=== PATIENT | female | born 1945 | race Caucasian/White ===

== ENCOUNTER 2021-02-22 13:30 | Inpatient (IN) ==
[2021-02-22] MEDS ORDERED: PROCHLORPERAZINE 1 ML IV ONE (14:02)
[2021-02-22] MEDS ORDERED: ACETAMINOPHEN 1,000 MG/100 ML VIAL IV STA (14:02)
[2021-02-22 14:19] LABS: Basophils # (auto) 0.02 K/uL (0-0.2); Basophils % (auto) 0.3 %; Eosinophils # (auto) 0.22 K/uL (0-0.5); Eosinophils % (auto) 3.7 %; Hematocrit (blood only) 41.8 % (37-47); Hemoglobin 13.7 g/dL (12.0-16.0); Immature Granulocytes # (auto) 0.01 K/uL (0.00-0.02); Immature Granulocytes % (auto) 0.2 %; Lymphocytes % (auto) 18.3 %; Mean Corpuscular Hgb Conc 32.8 g/dL (32-36); Mean Corpuscular Volume 91.7 fL (80-100); Mean Platelet Volume 9.9 fL (7.4-10.4); Monocytes # (auto) 0.79 K/uL (0.11-0.59); Monocytes % (auto) 13.1 %; Neutrophils # (auto) 3.87 K/uL (1.4-6.5); Neutrophils % (auto) 64.4 %; Platelet Count 260 K/uL (130-400); RDW Coefficient of Variation 13.6 % (11.5-14.5); RDW Standard Deviation 45.7 fL (36.4-46.3); Red Blood Count 4.56 M/uL (4.2-5.4); White Blood Count 6.01 K/uL (4.8-10.8)
[2021-02-22 14:30] LABS: Prothrombin Time 10.3 Seconds (9.0-12.0)
--- NOTE | 2021-02-22 14:40 | XRay Report ---
XR chest 1V portable CLINICAL HISTORY: Atypical chest pain TECHNIQUE: Single frontal radiograph of the chest was obtained. Comparison: None available at the time of this dictation. FINDINGS: No lines and tubes are seen. The cardiomediastinal silhouette is normal. The lungs are clear. No evid ence of pleural effusion or pneumothorax. A lucency is seen in the acromion. IMPRESSION: No acute chest disease. ACT 112: Negative or not required by law. Electronically signed by: Paulo De Santiago M.D. 02/22/2021 2:38 PM
[2021-02-22 15:04] LABS: Influenza A virus by PCR Negative (Neg); Influenza B virus by PCR Negative (Neg); RSV by PCR Negative (Neg); SARS CoV2 RNA(COVID-19) InHosp NEGATIVE (Negative)
[2021-02-22 15:14] LABS: Alanine Aminotransferase 28 (12-78); Albumin Level 3.7 gm/dl (3.4-5.0); Alkaline Phosphatase 97 U/L (45-117); Aspartate Aminotransferase 17 U/L (15-37); BUN Creatinine Ratio 18.6 (10-20); Bilirubin,Total 0.7 mg/dl (0.2-1); Blood Urea Nitrogen 14 mg/dl (7-18); C Reactive Protein < 0.29 mg/dl (0-0.29); Carbon Dioxide 28 mmol/L (21-32); Chloride 106 mmol/L (98-107); Creatinine Clr Calc Pharmacy 62.1 ml/min; Est GFR (African American) 88.9 ml/min; Est GFR (Non-African American) 76.7 ml/min; Globulin 3.8 gm/dl (2.5-4.0); Glucose 99 mg/dl (70-99); Lipase 103 U/L (73-393); Magnesium 2.2 mg/dl (1.8-2.4); Phosphorus 3.6 mg/dl (2.5-4.9); Potassium 3.2 mmol/L (3.5-5.1); Sodium 140 mmol/L (136-145); Total Protein 7.5 gm/dl (6.4-8.2); Troponin I < 0.015 ng/ml (0-0.045)
[2021-02-22] MEDS ORDERED: OPTIRAY 320 125ml IV ONE (15:29)
--- NOTE | 2021-02-22 15:51 | CT Scan Report ---
CT angio head w con, CT head/brain wo con, CT angio neck with con CLINICAL HISTORY: headache, nausea, blurred vision TECHNIQUE: Contiguous axial CT images of the head were acquired from the base of the skull to the kristie paulino without intravenous contrast administration. CT angiography of the head and neck was performed f ollowing intravenous administration of iodinated contrast. Automated dose lowering techniques and/or adjustment according to patient size were utilized for this examination. Comparison: None available at the time of this dictation. FINDINGS: CT head: There is hypodensity in the region of the left globus pallidus and putamen. Hypodensity is a lso noted in the left posterior supraventricular white matter. No andrew hemorrhage is seen. CTA Neck: A 3 vessel aortic arch is shown. There is no significant atherosclerotic plaque in the aor tic arch or the origins of the innominate, left common carotid, and left subclavian arteries. The co mmon carotid, external carotid, cervical segments of the internal carotid arteries, and the cervical segments of the vertebral arteries are patent. There is no hemodynamically significant diameter sten osis or dissection present. The right vertebral artery is dominant. The left vertebral artery is high ly diminutive and patent flow is not seen at multiple levels, particularly near the origin. Biapical scarring is noted. Incidental note is made of venous injection of air in the left subclavian artery. Subcentimeter thyroid nodules are seen bilaterally which do not require follow-up by ACR criteria. CTA Head: The anterior and posterior cerebral circulations are patent. No hemodynamically significan t stenosis, aneurysm, dissection, or arteriovenous malformation is shown. IMPRESSION: 1. Asymmetric hypodensity in the left anterior globus pallidus and putamen as well as the posterior supraventricular white matter which may possibly reflect acute infarct. If further evaluation is alex red, MRI is a more sensitive modality for acute infarct. 2. No occlusion, hemodynamically significant stenosis, aneurysm, dissection, or arteriovenous malfor mation in the major intracranial arteries. 3. Highly diminutive appearance of the left vertebral artery with no visualized flow proximally. The posterior circulation is supplied primarily by the right femoral artery. Assessment of stenosis of the internal carotid arteries is based on NASCET criteria. ACT 112: Negative or not required by law. Electronically signed by: Paulo De Santiago M.D. 02/22/2021 3:50 PM
[2021-02-22] MEDS ORDERED: SODIUM CHLORIDE 0.9% 1000ML 1,000 ML IV ONE ×2 (16:30→16:31)
--- NOTE | 2021-02-22 16:30 | Emergency Department Note ---
Impression & Plan CVA (cerebral vascular accident), Hypertensive urgency, Headache, Vision changes ED Provider Note NAME: BREONNA MAY AGE: 76 SEX: F ARRIVES VIA: Walk-In INFORMANT: Patient, daughter ED PROVIDER(S): Shaquille Storey MD CHIEF COMPLAINT: headache, blurred vision, weakness. PLAN: Disposition: Admit. MEDICAL DECISION MAKING: The patient is a pleasant 76-year-old woman with a past medical history of hyperlipidemia who presents to the emergency department accompanied by her daughter for symptoms of headache over her right eye that is been ongoing for the past week but with the development of generalized weakness and blurred vision evolving over the past 48 hours with associated nausea. She denies cough, congestion, chest pain, shortness of breath, diarrhea or urinary symptoms. She is not vaccinated for COVID-19. Denies any known COVID-19 e xposures. Patient was seen by her primary care doctor today and referred to emergency department for evaluation. On arrival the patient is fatigued appearing but no acute distress, afebrile with blood pressure elevated in the 200s/100s and vital signs otherwise stable. She appears clinically dry. She has no overt focal neurologic deficits. There is no obvious disconjugate gaze. No temporal tenderness. 5/5 strength and SILT x 4 extremities. Cerebellar function intact including rvmwpm-no-coob, alternating palms, [id number]. EKG without overt acute ischemia. CXR negative for acute cardiopulmonary process. WBC, H/H and platelets within normal limits. Chemistry without metabolic acidosis. Potassium 3.2 and electrolytes otherwise unremarkable. LFTs unremarkable. Troponin negative/undetectable. ESR and CRP are not significantly elevated. Lipase not elevated. COVID-19 PCR was negative. Influenza PCR also negative. CT of the head and CT of the head and neck were performed and demonstrates asymmetric hypodensity in left anterior globus pallidus and putamen as well as posterior supraventricular white matter which is suspicious for acute infarct. Otherwise no severe narrowing or occlusion of large vessels. Upon re-evaluation the patient did feel improved following IVF hydration, apap, and Compazine. However, BP continued to be elevated 200s/100s with HR in 50s.Patient and daughter agree with plan for admission. Case d/w Bryan Saavedra PAC, [facility] who will evaluate the patient for admission. IV enalaprilat ordered for BP control upon per admitting team. Triage Nursing notes reviewed and agree them. Prior medical records reviewed Vital Signs: reviewed and remarkable for hypertension. Differential diagnosis: Infection, dehydration, metabolic abnormality, hypo/hyperglycemia, electrolyte disturbance, anemia, hypoxia, cardiac sources, intracerebral event, toxicologic, neurologic, as well as other pathologies. ER treatment provided: See below. Diagnostics interpreted by me: ECG: Sinus bradycardia, 56 bpm, no ectopy, no overt ST elevation or depression, QTC 414, QRS 70. Cardiac Monitoring: An order for continuous cardiac monitoring was placed and demonstrated Sinus bradycardia, 56 bpm, no ectopy. Laboratory studies: See below Imaging studies: See below Consultation(s): Bryan Saavedra, with Dr. Laura Adams hospitalist who will evaluate the patient for admission. HPI: The patient is a pleasant 76-year-old woman with a past medical history of hyperlipidemia who presents to the emergency department accompanied by her daughter for symptoms of headache over her right eye that is been ongoing for the past week but with the development of generalized weakness and blurred vision evolving over the past 48 hours with associated nausea. She denies cough, congestion, chest pain, shortness of breath, diarrhea or urinary symptoms. She is not vaccinated for COVID-19. Denies any known COVID-19 exposures. Patient was seen by her primary care doctor today and referred to emergency department for evaluation. ROS: See above HPI for pertinent positives & negatives. A total of 10 systems reviewed and were otherwise negative. PAST MEDICAL HISTORY:See Below PAST SURGICAL HISTORY:See Below FAMILY HISTORY:See Below SOCIAL HISTORY:See Below HOME MEDICATIONS:See Below ALLERGIES:See Below VITALS:See Below PHYSICAL EXAMINATION: GENERAL: Awake, alert, fatigued-appearing, in no distress HENT: Normocephalic, atraumatic. Oropharynx with dry mucous membranes and otherwise unremarkable. EYES: Normal conjunctiva. Sclera non-icteric. EOMI. No nystamgus. PEARRL with no overt disconjugate gaze. No temporal tenderness. NECK: Supple. No nuchal rigidity. FROM. No JVD. RESPIRATORY: Clear to auscultation. CARDIAC: Regular rate, normal rhythm. Extremities warm and well perfused. Pulses equal. ABDOMEN: Soft, non-distended. No tenderness to palpation. No rebound or guarding. No masses. RECTAL: Deferred. MUSCULOSKELETAL: Chest examination reveals no tenderness. The back is symmetr ical on inspection without obvious abnormality. There is no CVA tenderness to palpation. No joint edema. LOWER EXTREMITIES: Calves are equal size bilaterally and non-tender. No edema. No discoloration. NEURO: No objective focal sensory or motor deficits noted. 5/5 strength and SILT x 4 extremities. Cerebellar function intact including [id number] and alternating palms.. SKIN: No rash or jaundice noted. Shaquille Storey MD Past Med/Surg History Medical History GERD (gastroesophageal reflux disease) HLD (hyperlipidemia) Family History Other Family history non-contributory Social History Smoking Status: Never smoker Hx Alcohol Use: No Hx Substance Use: No Preferred Language: Belarusian Communication Ability: Effective White Washer Required: No Beliefs That Will Affect Care: None Current Living Situation: Family Current Living Situation Comment: Lives with daughter and granddaughter Other Information That Helps Us Care for You: No Feels Safe at Home: Yes Safety Concerns: Feels Safe At This Time Assistive Devices: Walker Allergies Allergies Allergy/AdvReac Type Severity Reaction Status Date / Time No Known Allergies Allergy Unknown Unverified 02/22/21 14:20 Home Meds Home Medications Medication Instructions Recorded Confirmed amoxicillin 875 mg tablet 875 mg PO DAILY 02/22/21 02/22/21 aspirin 81 mg tablet,delayed 81 mg PO DAILY 02/22/21 02/22/21 release (Aspirin Low Dose) atorvastatin 20 mg tablet 20 mg PO HS 02/22/21 02/22/21 calcium 600 mg capsule 600 mg PO DAILY 02/22/21 02/22/21 famotidine 20 mg tablet 20 mg PO DAILY 02/22/21 02/22/21 fluoxetine 20 mg capsule 20 mg PO DAILY 02/22/21 02/22/21 multivitamin 1 tab PO DAILY 02/22/21 02/22/21 omega 3-pbh-vyt-fish oil 60 mg-90 1 cap PO DAILY 02/22/21 02/22/21 mg-500 mg capsule (Fish Oil) vit C-vit D-tpwiwn-mfpxxdkn-omega 1 cap PO DAILY 02/22/21 02/22/21 3 100 mg-15 unit-2 mg-100 mg capsule Results & Data (ED) Vital Signs Vital Signs - 24 hr 02/22/21 13:36 02/22/21 14:19 02/22/21 14:30 Temperature 36.6 C Temperature Source Temporal Artery Scan Pulse Rate 62 55 L 54 L Pulse Rate [Apical] Pulse Rate from SpO2 Sensor 55 L 54 L Pulse Rhythm [Apical] Pulse Strength [Apical] Respiratory Rate 18 22 22 Respiratory Effort / Characteristics Non-Labored Respiratory Depth Normal Blood Pressure 219/89 H Blood Pressure [Left Arm] Blood Pressure Mean 132 Blood Pressure Mean [Left Arm] Blood Pressure Position [Left Arm] Pulse Oximetry 97 96 93 Oxygen Delivery Method Room Air Sepsis Recent Fever Within 48 Hours No Sepsis New/Unexplained Change in Mental Status No Sepsis Action Taken by Nursing No Action Required 02/22/21 14:35 02/22/21 15:00 02/22/21 15:46 Temperature Temperature Source Pulse Rate 60 55 L Pulse Rate [Apical] Pulse Rate from SpO2 Sensor 58 L 55 L Pulse Rhythm [Apical] Pulse Strength [Apical] Respiratory Rate 15 17 Respiratory Effort / Characteristics Respiratory Depth Blood Pressure Blood Pressure [Left Arm] Blood Pressure Mean Blood Pressure Mean [Left Arm] Blood Pressure Position [Left Arm] Pulse Oximetry 98 95 96 Oxygen Delivery Method Room Air Sepsis Recent Fever Within 48 Hours Sepsis New/Unexplained Change in Mental Status Sepsis Action Taken by Nursing 02/22/21 16:00 02/22/21 16:10 02/22/21 16:30 Temperature Temperature Source Pulse Rate 54 L 60 Pulse Rate [Apical] 54 L Pulse Rate from SpO2 Sensor 54 L 58 L Pulse Rhythm [Apical] Regular Pulse Strength [Apical] Normal Respiratory Rate 19 16 16 Respiratory Effort / Characteristics Non-Labored Respiratory Depth Normal Blood Pressure 194/94 H Blood Pressure [Left Arm] 212/88 H Blood Pressure Mean 127 Blood Pressure Mean [Left Arm] 129 Blood Pressure Position [Left Arm] Lying Pulse Oximetry 94 94 96 Oxygen Delivery Method Room Air Sepsis Recent Fever Within 48 Hours Sepsis New/Unexplained Change in Mental Status Sepsis Action Taken by Nursing 02/22/21 17:01 Temperature Temperature Source Pulse Rate Pulse Rate [Apical] Pulse Rate from SpO2 Sensor 71 Pulse Rhythm [Apical] Pulse Strength [Apical] Respiratory Rate Respiratory Effort / Characteristics Respiratory Depth Blood Pressure Blood Pressure [Left Arm] Blood Pressure Mean Blood Pressure Mean [Left Arm] Blood Pressure Position [Left Arm] Pulse Oximetry 98 Oxygen Delivery Method Sepsis Recent Fever Within 48 Hours Sepsis New/Unexplained Change in Mental Status Sepsis Action Taken by Nursing Laboratory Data Attestation: I reviewed the patient's lab results. Result diagrams: 02/22/21 13:45 02/22/21 13:45 Lab Results 02/22/21 02/22/21 02/22/21 Range/Units 13:45 13:45 13:45 WBC 6.01 (4.8-10.8) K/uL RBC 4.56 (4.2-5.4) M/uL Hgb 13.7 (12.0-16.0) g/dL Hct 41.8 (37-47) % MCV 91.7 (80-100) fL MCH 30.0 (25-34) pg MCHC 32.8 (32-36) g/dL RDW Std Deviation 45.7 (36.4-46.3) fL RDW Coeff of Jacey 13.6 (11.5-14.5) % Plt Count 260 (130-400) K/uL MPV 9.9 (7.4-10.4) fL Immature Gran % (Auto) 0.2 % Neut % (Auto) 64.4 % Lymph % (Auto) 18.3 % Meeker % (Auto) 13.1 % Eos % (Auto) 3.7 % Baso % (Auto) 0.3 % Neut # (Auto) 3.87 (1.4-6.5) K/uL Lymph # (Auto) 1.10 L (1.2-3.4) K/uL Meeker # (Auto) 0.79 H (0.11-0.59) K/uL Eos # (Auto) 0.22 (0-0.5) K/uL Baso # (Auto) 0.02 (0-0.2) K/uL Immature Gran # (Auto) 0.01 (0.00-0.02) K/uL ESR (0-30) mm/hr PT 10.3 (9.0-12.0) Seconds INR 1.0 (0.9-1.1) Sodium 140 (136-145) mmol/L Potassium 3.2 L (3.5-5.1) mmol/L Chloride 106 (98-107) mmol/L Carbon Dioxide 28 (21-32) mmol/L Anion Gap 6.0 (3-11) BUN 14 (7-18) mg/dl Creatinine 0.76 (0.6-1.2) mg/dl Est Cr Clr Drug Dosing 62.1 ml/min Est GFR ( Amer) 88.9 ml/min Est GFR (Non-Af Amer) 76.7 ml/min BUN/Creatinine Ratio 18.6 (10-20) Glucose 99 (70-99) mg/dl Calcium 9.0 (8.5-10.1) mg/dl Phosphorus 3.6 (2.5-4.9) mg/dl Magnesium 2.2 (1.8-2.4) mg/dl Total Bilirubin 0.7 (0.2-1) mg/dl AST 17 (15-37) U/L ALT 28 (12-78) Alkaline Phosphatase 97 (45-117) U/L Troponin I < 0.015 (0-0.045) ng/ml C-Reactive Protein < 0.29 (0-0.29) mg/dl Total Protein 7.5 (6.4-8.2) gm/dl Albumin 3.7 (3.4-5.0) gm/dl Globulin 3.8 (2.5-4.0) gm/dl Albumin/Globulin Ratio 1.0 (0.9-2) Lipase 103 (73-393) U/L SARS-CoV-2 (PCR) (Negative) Influenza Type A (PCR) (Neg) Influenza Type B (PCR) (Neg) RSV (RT-PCR) (Neg) 02/22/21 02/22/21 Range/Units 13:45 13:50 WBC (4.8-10.8) K/uL RBC (4.2-5.4) M/uL Hgb (12.0-16.0) g/dL Hct (37-47) % MCV (80-100) fL MCH (25-34) pg MCHC (32-36) g/dL RDW Std Deviation (36.4-46.3) fL RDW Coeff of Jacey (11.5-14.5) % Plt Count (130-400) K/uL MPV (7.4-10.4) fL Immature Gran % (Auto) % Neut % (Auto) % Lymph % (Auto) % Meeker % (Auto) % Eos % (Auto) % Baso % (Auto) % Neut # (Auto) (1.4-6.5) K/uL Lymph # (Auto) (1.2-3.4) K/uL Meeker # (Auto) (0.11-0.59) K/uL Eos # (Auto) (0-0.5) K/uL Baso # (Auto) (0-0.2) K/uL Immature Gran # (Auto) (0.00-0.02) K/uL ESR 27 (0-30) mm/hr PT (9.0-12.0) Seconds INR (0.9-1.1) Sodium (136-145) mmol/L Potassium (3.5-5.1) mmol/L Chloride (98-107) mmol/L Carbon Dioxide (21-32) mmol/L Anion Gap (3-11) BUN (7-18) mg/dl Creatinine (0.6-1.2) mg/dl Est Cr Clr Drug Dosing ml/min Est GFR ( Amer) ml/min Est GFR (Non-Af Amer) ml/min BUN/Creatinine Ratio (10-20) Glucose (70-99) mg/dl Calcium (8.5-10.1) mg/dl Phosphorus (2.5-4.9) mg/dl Magnesium (1.8-2.4) mg/dl Total Bilirubin (0.2-1) mg/dl AST (15-37) U/L ALT (12-78) Alkaline Phosphatase (45-117) U/L Troponin I (0-0.045) ng/ml C-Reactive Protein (0-0.29) mg/dl Total Protein (6.4-8.2) gm/dl Albumin (3.4-5.0) gm/dl Globulin (2.5-4.0) gm/dl Albumin/Globulin Ratio (0.9-2) Lipase (73-393) U/L SARS-CoV-2 (PCR) NEGATIVE (Negative) Influenza Type A (PCR) Negative (Neg) Influenza Type B (PCR) Negative (Neg) RSV (RT-PCR) Negative (Neg) Administered Medications Atorvastatin Calcium (Atorvastatin 40 Mg Tab) 40 mg PO HS ELISA Stop: 03/24/21 20:59 Last Admin: 02/22/21 20:51 Dose: 40 mg Documented by: [id number] Sodium Chloride (Sodium Chloride 0.9% 10ml Flush) 30 ml IV Q24H ELISA Stop: 02/26/21 21:01 Last Admin: 02/22/21 17:50 Dose: Not Given Documented by: [id number] Discontinued Medications Clopidogrel Bisulfate (Clopidogrel Bisulfate 75 Mg Tab) 75 mg PO NOW ONE Stop: 02/22/21 17:07 Last Admin: 02/22/21 17:34 Dose: 75 mg Documented by: [id number] Gadobutrol (Gadobutrol 65ml Vial) 7.5 ml IV ONCE ONE Stop: 02/22/21 22:23 Last Admin: 02/22/21 22:25 Dose: 7.5 ml Documented by: [id number] Acetaminophen (Ofirmev) 1,000 mg in 100 mls @ 400 mls/hr IV NOW STA Stop: 02/22/21 14:16 Last Infusion: 02/22/21 14:59 Dose: 0 mls/hr Documented by: [id number] Admin: 02/22/21 14:22 Dose: 400 mls/hr Documented by: [id number] Prochlorperazine (Compazine) 1 mls @ 1 mls/min IV ONE ONE Stop: 02/22/21 14:03 Last Admin: 02/22/21 14:22 Dose: 1 mls/min Documented by: [id number] Sodium Chloride (Nss 1000ml) 1,000 mls @ 999 mls/hr IV .Q1H1M ONE Stop: 02/22/21 17:30 Last Infusion: 02/22/21 17:50 Dose: 0 mls/hr Documented by: [id number] Admin: 02/22/21 16:40 Dose: 999 mls/hr Documented by: [id number] Sodium Chloride (Nss 1000ml) 1,000 mls @ 999 mls/hr IV .Q1H1M ONE Stop: 02/22/21 17:31 Last Infusion: 02/22/21 19:50 Dose: 0 mls/hr Documented by: [id number] Admin: 02/22/21 16:40 Dose: 999 mls/hr Documented by: [id number] Remdesivir 200 mg/ Sodium (Chloride) 250 mls @ 125 mls/hr IV ONE STA; Protocol Stop: 02/22/21 19:40 Last Admin: 02/22/21 17:49 Dose: Not Given Documented by: [id number] Enalaprilat 0.625 mg/ Syringe 10 mls @ 2 mls/min IV NOW STA Stop: 02/22/21 17:51 Last Admin: 02/22/21 18:03 Dose: 2 mls/min Documented by: [id number] Ioversol (Optiray 320 125ml) 118 ml IV ONCE ONE Stop: 02/22/21 15:30 Last Admin: 02/22/21 15:34 Dose: 118 ml Documented by: [id number] Labetalol HCl (Labetalol Hcl Iv 5 Mg/Ml 20ml) 20 mg IV NOW STA Stop: 02/22/21 17:59 Last Admin: 02/22/21 18:03 Dose: 20 mg Documented by: [id number] Cosigned by: [id number] Imaging Data Radiologist's Impression: Chest X-Ray 02/22/21 13:57 XR chest 1V portable CLINICAL HISTORY: Atypical chest pain TECHNIQUE: Single frontal radiograph of the chest was obtained. Comparison: None available at the time of this dictation. FINDINGS: No lines and tubes are seen. The cardiomediastinal silhouette is normal. The lungs are clear. No evidence of pleural effusion or pneumothorax. A lucency is seen in the acromion. IMPRESSION: No acute chest disease. ACT 112: Negative or not required by law. Electronically signed by: Paulo De Santiago M.D. 02/22/2021 2:[address] 02/22/21 13:58 CT angio head w con, CT head/brain wo con, CT angio neck with con CLINICAL HISTORY: headache, nausea, blurred vision TECHNIQUE: Contiguous axial CT images of the head were acquired from the base of the skull to the vertex without intravenous contrast administration. CT angiography of the head and neck was performed following intravenous admi nistration of iodinated contrast. Automated dose lowering techniques and/or adjustment according to patient size were utilized for this examination. Comparison: None available at the time of this dictation. FINDINGS: CT head: There is hypodensity in the region of the left globus pallidus and putamen. Hypodensity is also noted in the left posterior supraventricular white matter. No andrew hemorrhage is seen. CTA Neck: A 3 vessel aortic arch is shown. There is no significant atherosclerotic plaque in the aortic arch or the origins of the innominate, left common carotid, and left subclavian arteries. The common carotid, external carotid, cervical segments of the internal carotid arteries, and the cervical segments of the vertebral arteries are patent. There is no hemodynamically significant diameter stenosis or dissection present. The right vertebral artery is dominant. The left vertebral artery is highly diminutive and patent flow is not seen at multiple levels, particularly near the origin. Biapical scarring is noted. Incidental note is made of venous injection of air in the left subclavian artery. Subcentimeter thyroid nodules are seen bilaterally which do not require follow-up by ACR criteria. CTA Head: The anterior and posterior cerebral circulations are patent. No hemodynamically significant stenosis, aneurysm, dissection, or arteriovenous m alformation is shown. IMPRESSION: 1. Asymmetric hypodensity in the left anterior globus pallidus and putamen as well as the posterior supraventricular white matter which may possibly reflect acute infarct. If further evaluation is desired, MRI is a more sensitive modality for acute infarct. 2. No occlusion, hemodynamically significant stenosis, aneurysm, dissection, or arteriovenous malformation in the major intracranial arteries. 3. Highly diminutive appearance of the left vertebral artery with no visualized flow proximally. The posterior circulation is supplied primarily by the right femoral artery. Assessment of stenosis of the internal carotid arteries is based on NASCET criteria. ACT 112: Negative or not required by law. Electronically signed by: Paulo De Santiago M.D. 02/22/2021 3:50 PM Head CTA 02/22/21 13:58 CT angio head w con, CT head/brain wo con, CT angio neck with con CLINICAL HISTORY: headache, nausea, blurred vision TECHNIQUE: Contiguous axial CT images of the head were acquired from the base of the skull to the vertex without intravenous contrast administration. CT angiography of the head and neck was performed following intravenous adminis tration of iodinated contrast. Automated dose lowering techniques and/or adjustment according to patient size were utilized for this examination. Comparison: None available at the time of this dictation. FINDINGS: CT head: There is hypodensity in the region of the left globus pallidus and putamen. Hypodensity is also noted in the left posterior supraventricular white matter. No andrew hemorrhage is seen. CTA Neck: A 3 vessel aortic arch is shown. There is no significant atherosclerotic plaque in the aortic arch or the origins of the innominate, left common carotid, and left subclavian arteries. The common carotid, external carotid, cervical segments of the internal carotid arteries, and the cervical segments of the vertebral arteries are patent. There is no hemodynamically significant diameter stenosis or dissection present. The right vertebral artery is dominant. The left vertebral artery is highly diminutive and patent flow is not seen at multiple levels, particularly near the origin. Biapical scarring is noted. Incidental note is made of venous injection of air in the left subclavian artery. Subcentimeter thyroid nodules are seen bilaterally which do not require follow-up by ACR criteria. CTA Head: The anterior and posterior cerebral circulations are patent. No hemodynamically significant stenosis, aneurysm, dissection, or arteriovenous malformation is shown. IMPRESSION: 1. Asymmetric hypodensity in the left anterior globus pallidus and putamen as well as the posterior supraventricular white matter which may possibly reflect acute infarct. If further evaluation is desired, MRI is a more sensitive modality for acute infarct. 2. No occlusion, hemodynamically significant stenosis, aneurysm, dissection, or arteriovenous malformation in the major intracranial arteries. 3. Highly diminutive appearance of the left vertebral artery with no visualized flow proximally. The posterior circulation is supplied primarily by the right femoral artery. Assessment of stenosis of the internal carotid arteries is based on NASCET criteria. ACT 112: Negative or not required by law. Electronically signed by: Paulo De Santiago M.D. 02/22/2021 3:50 PM Neck CTA 02/22/21 13:58 CT angio head w con, CT head/brain wo con, CT angio neck with con CLINICAL HISTORY: headache, nausea, blurred vision TECHNIQUE: Contiguous axial CT images of the head were acquired from the base of the skull to the vertex without intravenous contrast administration. CT angiography of the head and neck was performed following intravenous administra tion of iodinated contrast. Automated dose lowering techniques and/or adjustment according to patient size were utilized for this examination. Comparison: None available at the time of this dictation. FINDINGS: CT head: There is hypodensity in the region of the left globus pallidus and putamen. Hypodensity is also noted in the left posterior supraventricular white matter. No andrew hemorrhage is seen. CTA Neck: A 3 vessel aortic arch is shown. There is no significant atherosclerotic plaque in the aortic arch or the origins of the innominate, left common carotid, and left subclavian arteries. The common carotid, external carotid, cervical segments of the internal carotid arteries, and the cervical segments of the vertebral arteries are patent. There is no hemodynamically significant diameter stenosis or dissection present. The right vertebral artery is dominant. The left vertebral artery is highly diminutive and patent flow is not seen at multiple levels, particularly near the origin. Biapical scarring is noted. Incidental note is made of venous injection of air in the left subclavian artery. Subcentimeter thyroid nodules are seen bilaterally which do not require follow-up by ACR criteria. CTA Head: The anterior and posterior cerebral circulations are patent. No hemodynamically significant stenosis, aneurysm, dissection, or arteriovenous malformation is shown. IMPRESSION: 1. Asymmetric hypodensity in the left anterior globus pallidus and putamen as well as the posterior supraventricular white matter which may possibly reflect acute infarct. If further evaluation is desired, MRI is a more sensitive mo dality for acute infarct. 2. No occlusion, hemodynamically significant stenosis, aneurysm, dissection, or arteriovenous malformation in the major intracranial arteries. 3. Highly diminutive appearance of the left vertebral artery with no visualized flow proximally. The posterior circulation is supplied primarily by the right femoral artery. Assessment of stenosis of the internal carotid arteries is based on NASCET criteria. ACT 112: Negative or not required by law. Electronically signed by: Paulo De Santiago M.D. 02/22/2021 3:50 PM Discharge Plan Visit Data Chief Complaint: TIA Symptoms Stated Complaint: WEAKNESS,DOUBLE VISION, DR REF ED Provider: Shaquille Storey Discharge Problem: CVA (cerebral vascular accident), Hypertensive urgency, Headache, Vision changes Patient Disposition: Admitted As Inpatient Discharge Instructions Interventions: ED Discharge Assessment Last Done: 02/22/21 18:23 Discharge Problem: CVA (cerebral vascular accident) Qualifiers: CVA mechanism: unspecified Qualified Code(s): I63.9 - Cerebral infarction, unspecified Headache Qualifiers: Headache type: unspecified Headache chronicity pattern: acute headache Intractability: intractable Qualified Code(s): R51.9 - Headache, unspecified
--- NOTE | 2021-02-22 17:00 | History & Physical Report ---
Date of Service February 22, 2021 Assessment & Plan (1) CVA (cerebral vascular accident): Plan: -Admit to PCU -Appears her symptoms started approximately 1 week ago, worsened specifically on Friday night, no history of CVA -Blood pressure is elevated at 240/100, and heart rate in 60s, will administer IV labetalol now x1, allow for permissive hypertension with goal of SBP of 160- 180 -Neuro consulted, stroke order set completed -CT of the head showing possible infarct -MRI of the brain ordered -PT/OT consults for gait imbalance/unsteadiness -Patient is able to fully participate in strength testing and cerebellar testing without difficulty -Continue baby aspirin daily, add Plavix with first dose tonight -Increase atorvastatin from 20 mg daily to 40 mg (2) Hypertensive urgency: Plan: -BP as above -Control with IV labetalol for now, consider IV Vasotec if heart rate is low and blood pressure remains high -No history of being on blood pressure medication for hypertension (3) HLD (hyperlipidemia): Plan: -Lipid panel reviewed as an outpatient, total cholesterol was around 170 -Recheck lipid panel with am labs -Increase statin therapy as above (4) MDD (major depressive disorder): Plan: -Continue Prozac daily DVT prophylaxis: - joshua scds CODE: Full code Dispo: From home, likely to remain in the hospital x 1-2 days History of Present Illness Chief Complaint: Blurred vision, generalized weakness, R sided headache Primary Care Provider: Stephanie Kulkarni DO This is a 76 yo F with PMHx of HLD, hx breast cancer, MDD, who presents from PCP office today with complaint of new onset of intermittent blurred vision, Right sided frontal headache, and generalized weakness and unsteady gait which started approximately 1 week ago. Patient presented an outpatient weekend clinic where she was told that she possibly had an ear infection, however denied any history of ear pain, and was started on amoxicillin twice daily. After 2 to 3 days of antibiotic and worsening symptoms on Friday ( which included worse headache, increase blurred vision in the R eye, and increased gait unsteadiness) she scheduled see her PCP, which occurred this morning. Her daughter reports that she is not herself, has not been up and doing things like she typically does; i.e. walks 1.5 mi at least twice per week, however was not able to do so, did not go to worship, did not go out to lunch with her friends due to feeling ill recently. She presented to the hospital from PCP office due to needs for stat imaging with her complaints which were suggestive of neurological issue CT of the head here is showing a hypodense focal lesion. We are ordering an MRI of the brain for further imaging review. She takes daily baby aspirin as well as atorvastatin 20 mg. Patient denies any history of stroke or cva. She lives at home with her daughter and granddaughter. Her daughter is present at bedside and supports the history. Denies any smoking or drinking history. Her blood pressure is elevated at 212/88 here in the ER, her heart rate was as low as the mid 40s, however is back up into the mid 60s while at bedside. Administer labetalol IV for improvement in hypertensive urgency and follow. Allergies Allergy/AdvReac Type Severity Reaction Status Date / Time No Known Allergies Allergy Unknown Unverified 02/22/21 14:20 Home Medications Medication Instructions Recorded Confirmed Type amoxicillin 875 mg tablet 875 mg PO DAILY 02/22/21 02/22/21 History aspirin 81 mg tablet,delayed 81 mg PO DAILY 02/22/21 02/22/21 History release (Aspirin Low Dose) atorvastatin 20 mg tablet 20 mg PO HS 02/22/21 02/22/21 History calcium 600 mg capsule 600 mg PO DAILY 02/22/21 02/22/21 History famotidine 20 mg tablet 20 mg PO DAILY 02/22/21 02/22/21 History fluoxetine 20 mg capsule 20 mg PO DAILY 02/22/21 02/22/21 History multivitamin 1 tab PO DAILY 02/22/21 02/22/21 History omega 4-nbh-jmw-fish oil 60 mg-90 1 cap PO DAILY 02/22/21 02/22/21 History mg-500 mg capsule (Fish Oil) vit C-vit P-kennli-xvgchcbr-omega 1 cap PO DAILY 02/22/21 02/22/21 History 3 100 mg-15 unit-2 mg-100 mg capsule Past Med/Surg History Social History Smoking Status: Never smoker Hx Alcohol Use: No Hx Substance Use: No Preferred Language: Icelandic Communication Ability: Effective 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 + blurred vision as per HPI ENT: normal hearing, no trouble swallowing Respiratory: No cough, sputum, dyspnea at rest or on exertion Cardiovascular: No chest pain, tightness or palpitations Abdomen: No pain, nausea, vomiting, diarrhea or constipation Musculoskeletal: No joint pain, calf pain, swelling Neurologic: + Generalized weakness, numbness/tingling, + unsteady gait, no specific balance problems Psychiatric: History of major depression on medication Skin: No rash or itch Physical Exam Physical Exam: General: awake, alert, no apparent distress Head: Normocephalic, atraumatic ENT: PERRL, EOMI, no pharyngeal exudate, mucous membranes moist Chest: Clear to auscultation, on room air, no adventitious breath sounds Cardiac: Regular rate and rhythm, no murmur, no JVD, normal peripheral pulses, good capillary refill Abdominal: NABS x 4 quadrants, soft, nondistended, nontender to palpation, no rebound or guarding Extremities: Normal inspection, no peripheral edema or erythema, calfs nontender to palpation Psych: Normal mood and affect Neuro: AAO x 3, strength intact bilaterally and rated 5/5, no motor deficits, speech is clear, no peripheral sensory deficits, able to perform [id number] testing without difficulty. Gait wAs not assessed. Results & Data Results & Data ([facility]) Vital Signs (Past 12 Hours) Vital Signs Temp Pulse Pulse Resp BP BP Pulse Ox 02/22/21 16:10 54 L 16 212/88 H 94 02/22/21 15:46 55 L 17 96 02/22/21 15:00 60 15 95 02/22/21 14:35 98 02/22/21 14:30 54 L 22 93 02/22/21 14:19 55 L 22 96 02/22/21 13:36 36.6 C 62 18 219/89 H 97 Laboratory Results 02/22/21 02/22/21 02/22/21 13:50 13:45 13:45 WBC RBC Hgb Hct MCV MCH MCHC RDW Std Deviation RDW Coeff of Jacey Plt Count MPV Immature Gran % (Auto) Neut % (Auto) Lymph % (Auto) Meagher % (Auto) Eos % (Auto) Baso % (Auto) Neut # (Auto) Lymph # (Auto) Meagher # (Auto) Eos # (Auto) Baso # (Auto) Immature Gran # (Auto) ESR 27 PT INR Sodium 140 Potassium 3.2 L Chloride 106 Carbon Dioxide 28 Anion Gap 6.0 BUN 14 Creatinine 0.76 Est Cr Clr Drug Dosing 62.1 Est GFR ( Amer) 88.9 Est GFR (Non-Af Amer) 76.7 BUN/Creatinine Ratio 18.6 Glucose 99 Calcium 9.0 Phosphorus 3.6 Magnesium 2.2 Total Bilirubin 0.7 AST 17 ALT 28 Alkaline Phosphatase 97 Troponin I < 0.015 C-Reactive Protein < 0.29 Total Protein 7.5 Albumin 3.7 Globulin 3.8 Albumin/Globulin Ratio 1.0 Lipase 103 SARS-CoV-2 (PCR) NEGATIVE Influenza Type A (PCR) Negative Influenza Type B (PCR) Negative RSV (RT-PCR) Negative 02/22/21 02/22/21 13:45 13:45 WBC 6.01 RBC 4.56 Hgb 13.7 Hct 41.8 MCV 91.7 MCH 30.0 MCHC 32.8 RDW Std Deviation 45.7 RDW Coeff of Jacey 13.6 Plt Count 260 MPV 9.9 Immature Gran % (Auto) 0.2 Neut % (Auto) 64.4 Lymph % (Auto) 18.3 Meagher % (Auto) 13.1 Eos % (Auto) 3.7 Baso % (Auto) 0.3 Neut # (Auto) 3.87 Lymph # (Auto) 1.10 L Meagher # (Auto) 0.79 H Eos # (Auto) 0.22 Baso # (Auto) 0.02 Immature Gran # (Auto) 0.01 ESR PT 10.3 INR 1.0 Sodium Potassium Chloride Carbon Dioxide Anion Gap BUN Creatinine Est Cr Clr Drug Dosing Est GFR ( Amer) Est GFR (Non-Af Amer) BUN/Creatinine Ratio Glucose Calcium Phosphorus Magnesium Total Bilirubin AST ALT Alkaline Phosphatase Troponin I C-Reactive Protein Total Protein Albumin Globulin Albumin/Globulin Ratio Lipase SARS-CoV-2 (PCR) Influenza Type A (PCR) Influenza Type B (PCR) RSV (RT-PCR) Diagnostic Findings Chest X-Ray 02/22/21 13:57 XR chest 1V portable CLINICAL HISTORY: Atypical chest pain TECHNIQUE: Single frontal radiograph of the chest was obtained. Comparison: None available at the time of this dictation. FINDINGS: No lines and tubes are seen. The cardiomediastinal silhouette is normal. The lungs are clear. No evidence of pleural effusion or pneumothorax. A lucency is seen in the acromion. IMPRESSION: No acute chest disease. ACT 112: Negative or not required by law. Electronically signed by: Paulo De Santiago M.D. 02/22/2021 2:[address] 02/22/21 13:58 CT angio head w con, CT head/brain wo con, CT angio neck with con CLINICAL HISTORY: headache, nausea, blurred vision TECHNIQUE: Contiguous axial CT images of the head were acquired from the base of the skull to the vertex without intravenous contrast administration. CT angiography of the head and neck was performed following intravenous administration of iodinated contrast. Automated dose lowering techniques and/or adjustment according to patient size were utilized for this examination. Comparison: None available at the time of this dictation. FINDINGS: CT head: There is hypodensity in the region of the left globus pallidus and putamen. Hypodensity is also noted in the left posterior supraventricular white matter. No andrew hemorrhage is seen. CTA Neck: A 3 vessel aortic arch is shown. There is no significant atherosclerotic plaque in the aortic arch or the origins of the innominate, left common carotid, and left subclavian arteries. The common carotid, external carotid, cervical segments of the internal carotid arteries, and the cervical segments of the vertebral arteries are patent. There is no hemodynamically significant diameter stenosis or dissection present. The right vertebral artery is dominant. The left vertebral artery is highly diminutive and patent flow is not seen at multiple levels, particularly near the origin. Biapical scarring is noted. Incidental note is made of venous injection of air in the left subclavian artery. Subcentimeter thyroid nodules are seen bilaterally which do not require follow-up by ACR criteria. CTA Head: The anterior and posterior cerebral circulations are patent. No hemodynamically significant stenosis, aneurysm, dissection, or arteriovenous malformation is shown. IMPRESSION: 1. Asymmetric hypodensity in the left anterior globus pallidus and putamen as well as the posterior supraventricular white matter which may possibly reflect acute infarct. If further evaluation is desired, MRI is a more sensitive modality for acute infarct. 2. No occlusion, hemodynamically significant stenosis, aneurysm, dissection, or arteriovenous malformation in the major intracranial arteries. 3. Highly diminutive appearance of the left vertebral artery with no visualized flow proximally. The posterior circulation is supplied primarily by the right femoral artery. Assessment of stenosis of the internal carotid arteries is based on NASCET criteria. ACT 112: Negative or not required by law. Electronically signed by: Paulo De Santiago M.D. 02/22/2021 3:50 PM Head CTA 02/22/21 13:58 CT angio head w con, CT head/brain wo con, CT angio neck with con CLINICAL HISTORY: headache, nausea, blurred vision TECHNIQUE: Contiguous axial CT images of the head were acquired from the base of the skull to the vertex without intravenous contrast administration. CT angiography of the head and neck was performed following intravenous administration of iodinated contrast. Automated dose lowering techniques and/or adjustment according to patient size were utilized for this examination. Comparison: None available at the time of this dictation. FINDINGS: CT head: There is hypodensity in the region of the left globus pallidus and putamen. Hypodensity is also noted in the left posterior supraventricular white matter. No andrew hemorrhage is seen. CTA Neck: A 3 vessel aortic arch is shown. There is no significant atherosclerotic plaque in the aortic arch or the origins of the innominate, left common carotid, and left subclavian arteries. The common carotid, external carotid, cervical segments of the internal carotid arteries, and the cervical segments of the vertebral arteries are patent. There is no hemodynamically significant diameter stenosis or dissection present. The right vertebral artery is dominant. The left vertebral artery is highly diminutive and patent flow is not seen at multiple levels, particularly near the origin. Biapical scarring is noted. Incidental note is made of venous injection of air in the left subclavian artery. Subcentimeter thyroid nodules are seen bilaterally which do not require follow-up by ACR criteria. CTA Head: The anterior and posterior cerebral circulations are patent. No hemodynamically significant stenosis, aneurysm, dissection, or arteriovenous malformation is shown. IMPRESSION: 1. Asymmetric hypodensity in the left anterior globus pallidus and putamen as well as the posterior supraventricular white matter which may possibly reflect acute infarct. If further evaluation is desired, MRI is a more sensitive modality for acute infarct. 2. No occlusion, hemodynamically significant stenosis, aneurysm, dissection, or arteriovenous malformation in the major intracranial arteries. 3. Highly diminutive appearance of the left vertebral artery with no visualized flow proximally. The posterior circulation is supplied primarily by the right femoral artery. Assessment of stenosis of the internal carotid arteries is based on NASCET criteria. ACT 112: Negative or not required by law. Electronically signed by: Paulo D eSantiago M.D. 02/22/2021 3:50 PM Neck CTA 02/22/21 13:58 CT angio head w con, CT head/brain wo con, CT angio neck with con CLINICAL HISTORY: headache, nausea, blurred vision TECHNIQUE: Contiguous axial CT images of the head were acquired from the base of the skull to the vertex without intravenous contrast administration. CT angiography of the head and neck was performed following intravenous administration of iodinated contrast. Automated dose lowering techniques and/or adjustment according to patient size were utilized for this examination. Comparison: None available at the time of this dictation. FINDINGS: CT head: There is hypodensity in the region of the left globus pallidus and putamen. Hypodensity is also noted in the left posterior supraventricular white matter. No andrew hemorrhage is seen. CTA Neck: A 3 vessel aortic arch is shown. There is no significant atherosclerotic plaque in the aortic arch or the origins of the innominate, left common carotid, and left subclavian arteries. The common carotid, external carotid, cervical segments of the internal carotid arteries, and the cervical segments of the vertebral arteries are patent. There is no hemodynamically significant diameter stenosis or dissection present. The right vertebral artery is dominant. The left vertebral artery is highly diminutive and patent flow is not seen at multiple levels, particularly near the origin. Biapical scarring is noted. Incidental note is made of venous injection of air in the left subclavian artery. Subcentimeter thyroid nodules are seen bilaterally which do not require follow-up by ACR criteria. CTA Head: The anterior and posterior cerebral circulations are patent. No hemodynamically significant stenosis, aneurysm, dissection, or arteriovenous malformation is shown. IMPRESSION: 1. Asymmetric hypodensity in the left anterior globus pallidus and putamen as well as the posterior supraventricular white matter which may possibly reflect acute infarct. If further evaluation is desired, MRI is a more sensitive modality for acute infarct. 2. No occlusion, hemodynamically significant stenosis, aneurysm, dissection, or arteriovenous malformation in the major intracranial arteries. 3. Highly diminutive appearance of the left vertebral artery with no visualized flow proximally. The posterior circulation is supplied primarily by the right femoral artery. Assessment of stenosis of the internal carotid arteries is based on NASCET criteria. ACT 112: Negative or not required by law. Electronically signed by: Paulo De Santiago M.D. 02/22/2021 3:50 PM ECG Additional Comments: 22-FEB-2021 13:57:04 [facility]-EDSTAT ROUTINE RETRIEVAL Poor data quality, interpretation may be adversely affected Sinus bradycardia Otherwise normal ECG When compared with ECG of 31-AUG-2002 17:23, No significant change was found 25mm/s 10mm/mV 150Hz 9.0.9 12SL 241 AMADA: 11 Referred by: Stephanie Kulkarni Unconfirmed Vent. rate 56 BPM [place] interval 162 ms QRS duration 70 ms QT/QTc 430/414 ms Code Status & VTE Plan Code Status Full code-discussed with the patient at bedside Supervising Physician Co-Signing Physician Notes I saw this patient with the physician assistant production manager, I participated in the history, physical, review of systems, and physical exam. I reviewed the medications with the patient and the physician assistant production manager and helped reconcile the medications. I helped take a detailed family and social history as well. I formulated the assessment and plan personally with the physician assistant production manager and went over it with the patient. Physical Exam Gen-AAO x 3, NAD, Afebrile Head-NCAT, EOMI, PERRLA, Anicteric Sclera, No Posterior Pharyngeal Erythema Neck-Supple, No JVD, No Thyromegaly, No Masses, No LAD, No Bruits Lungs-Clear to Auscultation Bilaterally, No Rales, No Rhonchi, No Wheezing, No Crepitus Chest-No S4, +S1, +S2, No S3, No Murmurs, No Rubs, No Gallops, No Ectopy Abdomen-Soft, Bowel Sounds Present, Non Tender, Non Distended, No Hepatomegaly, No Splenomegaly, No Palpable Masses, No Rebound, No Rigidity, No Guarding Musculoskeletal-Full Range of Motion Bilaterally, No CVAT Extremities-No Cyanosis, No Clubbing, No Edema Nuero-Cranial Nerves II-XII grossly intact, Motor WNL, DTRs WNL, Strength WNL, Non Focal Psych-Normal Mood
[2021-02-22] MEDS ORDERED: CLOPIDOGREL BISULFATE 75 MG TAB PO ONE (17:06)
[2021-02-22] MEDS ORDERED: METOPROLOL TARTRATE 1 MG/ML VIAL IV PRN (17:08)
[2021-02-22] MEDS ORDERED: REMDESIVIR 200 MG in SODIUM CHLORIDE 0.9% 210 ML IV STA (17:41)
[2021-02-22] MEDS ORDERED: ENALAPRILAT 0.625 MG in SYRINGE 9.5 ML IV STA (17:47)
[2021-02-22] MEDS ORDERED: LABETALOL HCL IV 5 MG/ML 20ML IV STA (17:58)
[2021-02-22] MEDS ORDERED: ONDANSETRON INJ 2 MG/ML 2 ML VIAL IV PRN (19:16)
[2021-02-22] MEDS ORDERED: PHARMACIST DISCHARGE MED REC CONSULT PRN (19:16)
[2021-02-22] MEDS: ATORVASTATIN 40 MG TAB PO SCH (20:51)
[2021-02-22] MEDS ORDERED: SODIUM CHLORIDE 0.9% 10ML FLUSH IV SCH (21:00)
[2021-02-22] MEDS ORDERED: GADOBUTROL 65ML VIAL IV ONE (22:22)
[2021-02-23] MEDS: CEROVITE ADV FORMULA TAB PO SCH (07:39)
[2021-02-23] MEDS: ASPIRIN 81 MG ECTAB PO SCH (07:40)
[2021-02-23] MEDS: FAMOTIDINE 20 MG TAB PO SCH (07:40)
[2021-02-23] MEDS: FLUoxetine HCL 20 MG CAP PO SCH (07:40)
[2021-02-23] MEDS: ACETAMINOPHEN 325 MG TAB PO PRN ×3 (07:44→20:43)
[2021-02-23 07:52] LABS: Basophils # (auto) 0.01 K/uL (0-0.2); Basophils % (auto) 0.2 %; Eosinophils # (auto) 0.14 K/uL (0-0.5); Eosinophils % (auto) 2.7 %; Hematocrit (blood only) 39.5 % (37-47); Immature Granulocytes # (auto) 0.01 K/uL (0.00-0.02); Immature Granulocytes % (auto) 0.2 %; Lymphocytes # (auto) 1.09 K/uL (1.2-3.4); Lymphocytes % (auto) 21.3 %; Mean Corpuscular Hgb Conc 32.9 g/dL (32-36); Mean Platelet Volume 9.5 fL (7.4-10.4); Monocytes # (auto) 0.59 K/uL (0.11-0.59); Monocytes % (auto) 11.5 %; Neutrophils # (auto) 3.28 K/uL (1.4-6.5); Neutrophils % (auto) 64.1 %; Platelet Count 244 K/uL (130-400); RDW Coefficient of Variation 13.7 % (11.5-14.5); RDW Standard Deviation 45.9 fL (36.4-46.3); Red Blood Count 4.34 M/uL (4.2-5.4); White Blood Count 5.12 K/uL (4.8-10.8)
--- NOTE | 2021-02-23 08:01 | Magnetic Resonance Report ---
Brain MRI WITH AND WITHOUT CONTRAST HISTORY: Headache. CVA, unsteady gait. Blurred vision TECHNIQUE: Multiplanar multisequence MRI of the brain was performed both before and after the intrave nous administration of contrast. COMPARISON STUDY: Head CT 02/22/2021. FINDINGS: There are no areas of restricted diffusion to suggest acute infarction. The midline structu res are intact. Bilateral maxillary sinus retention cysts. Multiple scattered foci of T2 hyperintensi ty seen within the periventricular and subcortical white matter of the superficial brain. This is mos t pronounced within the left periventricular white matter and corresponds to the abnormality on the p rior CT examination. Although nonspecific, this favors microvascular ischemic change given the patien t's age. Multiple sclerosis, Lyme disease, or migraines can also have a similar appearance but are co nsidered less likely. The ventricles and sulci are within normal limits for age. There is no mass, he matoma, midline shift. The major vascular flow-voids at the skull base are well maintained. Postcontr ast sequences show no areas of abnormal enhancement. IMPRESSION: 1. No acute infarct. 2. Multiple scattered foci of T2 hyperintensity seen within the periventricular and subcortical white matter of the superficial brain. This is most pronounced within the left periventricular white matte r and corresponds to the abnormality on the prior CT examination. Although nonspecific, this favors m icrovascular ischemic change given the patient's age. Multiple sclerosis, Lyme disease, or migraines can also have a similar appearance but are considered less likely. ACT 112: Negative or not required by law. Electronically signed by: Clifford Santana M.D. 02/23/2021 8:00 AM
[2021-02-23 08:10] LABS: Albumin Level 3.3 gm/dl (3.4-5.0); BUN Creatinine Ratio 14.6 (10-20); Calcium 8.8 mg/dl (8.5-10.1); Creatinine Clr Calc Pharmacy 65.2 ml/min; Est GFR (African American) 98.2 ml/min; Est GFR (Non-African American) 84.8 ml/min; Potassium 3.4 mmol/L (3.5-5.1)
[2021-02-23 08:13] LABS: Bilirubin,Total 0.5 mg/dl (0.2-1); Estimated Average Glucose 114 mg/dl; Globulin 3.4 gm/dl (2.5-4.0); Hemoglobin A1C 5.6 % (4.5-5.6); Total Protein 6.7 gm/dl (6.4-8.2)
[2021-02-23] MEDS ORDERED: dexAMETHasone 6 MG in SYRINGE 0 ML IV SCH (09:00)
[2021-02-23] MEDS ORDERED: CLOPIDOGREL BISULFATE 75 MG TAB PO SCH (09:00)
[2021-02-23] MEDS ORDERED: POTASSIUM CHLORIDE CRTAB 20 MEQ TABCR PO ONE (10:06)
[2021-02-23] MEDS: LOSARTAN POTASSIUM 50 MG TAB PO SCH (11:01)
--- NOTE | 2021-02-23 12:19 | Neurology Consultation ---
Date of Consultation February 23, 2021 Assessment & Plan (1) Hypertensive urgency: 1. slowly reduce blood pressure 2. imaging reviewed with patient and daughter all questions answered 3. MRI no stroke - white matter change that are likely chronic headache changes 4. CTA head/neck no narrowing or significant stenosis 5. TTE - no ASD follow up with neurology 4-6 weeks after discharge if headaches persist otherwise PRN (2) Headache: 1. headache history which she calls sinus headache were likely migraine 2. add riboflavin 400 mg and mg++ ox 400 mg daily 3. tylenol and motrin for prn treatment (3) Vision changes: 1. 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 with some increased prominence in the posterior portions of the left hemisphere to the point that her CAT scan also demonstrates these lesions and was misleading to the point that the initial diagnosis was that of a subacute stroke She was hypertensive on admission but upon review of her history it sounds as though her blood pressure and her primary care office was in the normal range and is not clear whether or not the hypertension admission was at epiphenomena of her generalized malaise and her headache She does relate to "sinus headaches" occurring infrequently over the years but always unilateral and often associated with vaguely defined visual blurring (I cannot get a history of scintillating scotoma however) Dr. Christian has mentioned the possibility of this being a protracted migrainous event and certainly this is possible particularly when 1 gets this history of recurrent stereotypic unilateral headaches That having been said she is now improved her blood pressure is being treated there is been no other significant abnormal laboratory findings no evidence for infection, no evidence for a new stroke, no significant extracranial occlusive disease or intracranial disease on CTA and even if this was felt to be a migrainous event we would not treated as such and simply observe it for recurrence in the future We are going to sign off the case at this point but will be most willing to reassess her on an outpatient basis should these headaches become recurrent and increase in frequency Parker Ramirez MD History of Present Illness Reason for Consultation: CVA Requesting Physician: Mike Christian MD Attending Physician: Mike Christian MD History of Present Illness Susana is a 76 year old female with PMH- HLD, hx breast cancer, MDD, who presents from PCP office 02/22/2021 with complaint of new onset of intermittent blurred vision, right sided frontal headache, and generalized weakness and unsteady gait which started 1 weeks ago.She was see at an outpatient weekend clinic for possible ear infection and started on amoxicillin twice daily. After 2 to 3 days of antibiotic and worsening symptoms on Friday ( which included worse headache, increase blurred vision in the R eye, and increased gait unsteadiness) she saw her PCP. Her daughter reports she is not herself, has not been up and doing things like she typically does; i.e. walks 1.5 mi at least twice per week and did not go to nondenominational, and did not go out to lunch with her friends due to feeling ill recently.She takes daily baby aspirin as well as atorvastatin 20 mg. She still has a headache above her left eye and some on and off blurred vision. the headache is not pounding but pressure and is currently 8/10. denies CP, SOB, abdominal pain, N, V. Allergies Allergy/AdvReac Type Severity Reaction Status Date / Time No Known Allergies Allergy Unknown Unverified 02/22/21 14:20 Home Medications Medication Instructions Recorded Confirmed Type amoxicillin 875 mg tablet 875 mg PO DAILY 02/22/21 02/22/21 History aspirin 81 mg tablet,delayed 81 mg PO DAILY 02/22/21 02/22/21 History release (Aspirin Low Dose) atorvastatin 20 mg tablet 20 mg PO HS 02/22/21 02/22/21 History calcium 600 mg capsule 600 mg PO DAILY 02/22/21 02/22/21 History famotidine 20 mg tablet 20 mg PO DAILY 02/22/21 02/22/21 History fluoxetine 20 mg capsule 20 mg PO DAILY 02/22/21 02/22/21 History multivitamin 1 tab PO DAILY 02/22/21 02/22/21 History omega 0-csq-lpn-fish oil 60 mg-90 1 cap PO DAILY 02/22/21 02/22/21 History mg-500 mg capsule (Fish Oil) vit C-vit U-dzfzms-ribwdcbu-omega 1 cap PO DAILY 02/22/21 02/22/21 History 3 100 mg-15 unit-2 mg-100 mg capsule Patient History Medical History GERD (gastroesophageal reflux disease) HLD (hyperlipidemia) Family History Other Family history non-contributory Social History Smoking Status: Never smoker Hx Alcohol Use: No Hx Substance Use: No Preferred Language: German Communication Ability: Effective Shirt Sorter Required: No Beliefs That Will Affect Care: None Current Living Situation: Family Current Living Situation Comment: Lives with daughter and granddaughter How many Children do You have: 2 Other Information That Helps Us Care for You: No Feels Safe at Home: Yes Safety Concerns: Feels Safe At This Time Assistive Devices: None Review of Systems Review of Systems: All systems reviewed & are unremarkable except as noted in HPI & below Physical Exam Physical Exam: Physical Exam: Constitutional: appearance nourished, healthy and normal Ears, Nose, Mouth and Throat: mucous membranes moist, no injection and skin normal, eyes normal Cardiovascular: normal S-1 and S-2 and regular rate and rhythm Respiratory: clear to auscultation (CTA) and no rales, rhonchi or wheeze Musculoskeletal: no peripheral edema and good distal pulses Skin: no stigmata of neurocutaneous disease noted and normal and intact Eyes: extraocular muscles intact (EOMI) and pupils equal, round and reactive to light (PERRL) NEUROLOGIC EXAMINATION: Mental status: Alert and interactive Oriented to full date and location Oriented to person Speech fluent with no evidence of aphasia Cranial Nerves smile eye brow raise symmetric Reflexes: Deep tendon reflexes were symmetrical and graded 2/5. down going toes Sensory: light cool touch Coordination: finger to nose Gait/Stance: Posture sitting up in bed Motor: Negative for pronator drift of out stretched arms with eyes closed. 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 5/5 bilaterally hip flex patellar flex ext 5/5 Results & Data ([facility]) Vital Signs (Past 12 Hours) Vital Signs Temp Pulse Resp BP Pulse Ox Pulse Ox 02/23/21 11:55 36.5 C 70 20 131/59 L 96 02/23/21 11:38 97 02/23/21 08:03 36.9 C 88 18 149/60 H 96 02/23/21 03:45 37.4 C 60 18 150/77 H 96 Laboratory Results Abnormal lab results 02/22/21 02/22/21 02/23/21 Range/Units 13:45 13:45 07:36 Lymph # (Auto) 1.10 L 1.09 L (1.2-3.4) K/uL [place] # (Auto) 0.79 H (0.11-0.59) K/uL Potassium 3.2 L (3.5-5.1) mmol/L Glucose (70-99) mg/dl Albumin (3.4-5.0) gm/dl 02/23/21 Range/Units 07:36 Lymph # (Auto) (1.2-3.4) K/uL [place] # (Auto) (0.11-0.59) K/uL Potassium 3.4 L (3.5-5.1) mmol/L Glucose 112 H (70-99) mg/dl Albumin 3.3 L (3.4-5.0) gm/dl Diagnostic Findings CXR-No acute chest disease. cT head-Asymmetric hypodensity in the left anterior globus pallidus and putamen as well as the posterior supraventricular white matter which may possibly reflect acute infarct. If further evaluation is desired, MRI is a more sensitive modality for acute infarct. No occlusion, hemodynamically significant stenosis, aneurysm, dissection, or arteriovenous malformation in the major intracranial arteries. Highly diminutive appearance of the left vertebral artery with no visualized flow proximally. The posterior circulation is supplied primarily by the right femoral artery. CTA head/neck- Asymmetric hypodensity in the left anterior globus pallidus and putamen as well as the posterior supraventricular white matter which may possibly reflect acute infarct. If further evaluation is desired, MRI is a more sensitive modality for acute infarct. No occlusion, hemodynamically significant stenosis, aneurysm, dissection, or arteriovenous malformation in the major intracranial arteries. Highly diminutive appearance of the left vertebral artery with no visualized flow proximally. The posterior circulation is supplied primarily by the right femoral artery. MRI brain-No acute infarct. Multiple scattered foci of T2 hyperintensity seen within the periventricular and subcortical white matter of the superficial brain. This is most pronounced within the left periventricular white matter and corresponds to the abnormality on the prior CT examination. Although nonspecific, this favors microvascular ischemic change given the patient's age. Multiple sclerosis, Lyme disease, or migraines can also have a similar appearance but are considered less likely. TTE 60-65% no ASD (1) Headache Headache chronicity pattern: acute headache Headache type: unspecified Intractability: intractable Qualified Code(s): R51.9 - Headache, unspecified
[2021-02-23] MEDS ORDERED: amLODIPine BESYLATE 5 MG TAB PO ONE (16:48)
--- NOTE | 2021-02-23 17:33 | Hospitalist Progress Note ---
Date of Service February 23, 2021 Assessment & Plan (1) CVA (cerebral vascular accident): Plan: Stroke like symptoms CVA ruled out D:chronic vascular leukoencephalopathy, complicated migraine, secondary to hypertensive urgency -MRI Brain:No acute infarct. Multiple scattered foci of T2 hyperintensity seen within the periventricular and subcortical white matter of the superficial brain. This is most pronounced within the left periventricular white matter and corresponds to the abnormality on the prior CT examination. Although nonspecific, this favors microvascular ischemic change given the patient's age. Multiple sclerosis, Lyme disease, or migraines can also have a similar appearance but are considered less likely. --Head/Neck CTA:Asymmetric hypodensity in the left anterior globus pallidus and putamen as well as the posterior supraventricular white matter which may possibly reflect acute infarct. If further evaluation is desired, MRI is a more sensitive modality for acute infarct. No occlusion, hemodynamically significant stenosis, aneurysm, dissection, or arteriovenous malformation in the major intracranial arteries. Highly diminutive appearance of the left vertebral artery with no visualized flow proximally. The posterior circulation is supplied primarily by the right femoral artery. --Continue aspirin, Lipitor Blood pressure control Appreciate neurology input We will consider to start riboflavin, magnesium supplements Needs outpatient follow-up with neurology, ophthalmology (2) Hypertensive urgency: Plan: Started on losartan, amlodipine Labetalol as needed Echo reviewed Monitor Consider sleep study as outpatient (3) HLD (hyperlipidemia): Plan: Continue Lipitor (4) MDD (major depressive disorder): Plan: -Continue Prozac daily DVT Px: teds, scds CODE STATUS: Full code Admission and Anticipated Discharge Date Admission Date: February 22, 2021 Subjective Patient is seen and examined at bedside States having right supraorbital headache associated with blurry vision Double vision resolved Denies any focal weakness Discussed with neurology today Denies any chest pain, dyspnea, dizziness Review of Systems Review of Systems: All systems reviewed & are unremarkable except as noted in Subjective Physical Exam Physical Exam: Physical Exam: Vitals signs as noted above General Appearance:Moderately built and nourished, no apparent distress Head: normocephalic, Atraumatic Eyes: normal inspection, EOMI Neck: supple, Trachea midline Respiratory/Chest: Normal breath sounds, CTA Cardiovascular: S1, S2, No murmur Abdomen/GI:Soft, Non tender, Bowel sounds present Extremities/Musculoskeletal:normal inspection, no edema Neurologic/Psych:AAOX3, grossly no focal neurological deficits Skin: normal color, warm Results & Data Results & Data ([facility]) Vital Signs (Past 12 Hours) Vital Signs Temp Pulse Pulse Resp BP BP Pulse Ox 02/23/21 16:52 63 186/86 H 02/23/21 16:28 36.8 C 63 18 186/86 H 96 02/23/21 11:55 36.5 C 70 20 196/76 H 96 02/23/21 11:38 02/23/21 08:03 36.9 C 88 18 149/60 H 96 Pulse Ox 02/23/21 16:52 02/23/21 16:28 02/23/21 11:55 02/23/21 11:38 97 02/23/21 08:03 Laboratory Results Short CBC 02/23/21 Range/Units 07:36 WBC 5.12 (4.8-10.8) K/uL Hgb 13.0 (12.0-16.0) g/dL Hct 39.5 (37-47) % Plt Count 244 (130-400) K/uL BMP 02/23/21 07:36 Sodium 140 Potassium 3.4 L Chloride 107 Carbon Dioxide 27 BUN 10 Creatinine 0.70 Glucose 112 H Calcium 8.8 Liver Function 02/23/21 Range/Units 07:36 Total Bilirubin 0.5 (0.2-1) mg/dl AST 15 (15-37) U/L ALT 24 (12-78) Alkaline Phosphatase 90 (45-117) U/L Albumin 3.3 L (3.4-5.0) gm/dl (1) CVA (cerebral vascular accident) CVA mechanism: unspecified Qualified Code(s): I63.9 - Cerebral infarction, unspecified
[2021-02-23] MEDS ORDERED: REMDESIVIR 100 MG in SODIUM CHLORIDE 0.9% 230 ML IV SCH (20:00)
[2021-02-23] MEDS: ATORVASTATIN 40 MG TAB PO SCH (20:41)
--- NOTE | 2021-02-23 22:14 | Electrocardiogram Report ---
Test Reason : Blood Pressure : / mmHG Vent. Rate : 056 BPM Atrial Rate : 056 BPM P-R Int : 162 ms QRS Dur : 070 ms QT Int : 430 ms P-R-T Axes : 061 043 073 degrees QTc Int : 414 ms Poor data quality, interpretation may be adversely affected Sinus bradycardia Otherwise normal ECG When compared with ECG of 31-AUG-2002 17:23, No significant change was found Confirmed by Oscar Bond ([id number]) on 02/23/2021 10:14:14 PM Referred By: Stephanie Kulkarni Confirmed By:Oscar Bond
[2021-02-24 07:23] LABS: Basophils # (auto) 0.02 K/uL (0-0.2); Basophils % (auto) 0.4 %; Eosinophils # (auto) 0.13 K/uL (0-0.5); Eosinophils % (auto) 2.4 %; Hematocrit (blood only) 41.1 % (37-47); Hemoglobin 13.3 g/dL (12.0-16.0); Lymphocytes % (auto) 22.5 %; Mean Corpuscular Hemoglobin 29.8 pg (25-34); Mean Corpuscular Hgb Conc 32.4 g/dL (32-36); Mean Corpuscular Volume 91.9 fL (80-100); Mean Platelet Volume 10.2 fL (7.4-10.4); Monocytes # (auto) 0.51 K/uL (0.11-0.59); Monocytes % (auto) 9.6 %; Neutrophils # (auto) 3.47 K/uL (1.4-6.5); Neutrophils % (auto) 65.1 %; Platelet Count 253 K/uL (130-400); RDW Coefficient of Variation 13.6 % (11.5-14.5); RDW Standard Deviation 45.4 fL (36.4-46.3); Red Blood Count 4.47 M/uL (4.2-5.4); White Blood Count 5.33 K/uL (4.8-10.8)
[2021-02-24 07:48] LABS: BUN Creatinine Ratio 18.9 (10-20); Calcium 9.1 mg/dl (8.5-10.1); Creatinine Clr Calc Pharmacy 56.4 ml/min; Est GFR (African American) 82.3 ml/min; Potassium 3.6 mmol/L (3.5-5.1)
[2021-02-24] MEDS: ASPIRIN 81 MG ECTAB PO SCH (08:08)
[2021-02-24] MEDS: FLUoxetine HCL 20 MG CAP PO SCH (08:09)
[2021-02-24] MEDS: CEROVITE ADV FORMULA TAB PO SCH (08:09)
[2021-02-24] MEDS: FAMOTIDINE 20 MG TAB PO SCH (08:09)
[2021-02-24] MEDS: LOSARTAN POTASSIUM 50 MG TAB PO SCH (08:09)
[2021-02-24] MEDS: ACETAMINOPHEN 325 MG TAB PO PRN (08:14)
[2021-02-24] MEDS ORDERED: MAGNESIUM OXIDE 400 MG TAB PO SCH (09:00)
[2021-02-24] MEDS ORDERED: amLODIPine BESYLATE 5 MG TAB PO SCH (09:00)
--- NOTE | 2021-02-24 12:10 | Hospitalist Progress Note ---
Date of Service February 24, 2021 Assessment & Plan (1) CVA (cerebral vascular accident): Plan: Stroke like symptoms CVA ruled out D:chronic vascular leukoencephalopathy, complicated migraine, secondary to hypertensive urgency -MRI Brain:No acute infarct. Multiple scattered foci of T2 hyperintensity seen within the periventricular and subcortical white matter of the superficial brain. This is most pronounced within the left periventricular white matter and corresponds to the abnormality on the prior CT examination. Although nonspecific, this favors microvascular ischemic change given the patient's age. Multiple sclerosis, Lyme disease, or migraines can also have a similar appearance but are considered less likely. --Head/Neck CTA:Asymmetric hypodensity in the left anterior globus pallidus and putamen as well as the posterior supraventricular white matter which may possibly reflect acute infarct. If further evaluation is desired, MRI is a more sensitive modality for acute infarct. No occlusion, hemodynamically significant stenosis, aneurysm, dissection, or arteriovenous malformation in the major intracranial arteries. Highly diminutive appearance of the left vertebral artery with no visualized flow proximally. The posterior circulation is supplied primarily by the right femoral artery. --Continue aspirin, Lipitor Blood pressure better today Appreciate neurology input Plan to start riboflavin, magnesium supplements Needs outpatient follow-up with neurology, ophthalmology (2) Hypertensive urgency: Plan: Continue losartan, amlodipine Labetalol as needed Echo reviewed Monitor Consider sleep study as outpatient (3) HLD (hyperlipidemia): Plan: Continue Lipitor (4) MDD (major depressive disorder): Plan: -Continue Prozac daily DVT Px: teds, scds CODE STATUS: Full code Admission and Anticipated Discharge Date Admission Date: February 22, 2021 Subjective Patient is seen and examined at bedside Double vision resolved Headache better Still reports Blurry vision intermittently but none during my encounter Denies any focal weakness Also denies any chest pain, dyspnea, dizziness Review of Systems Review of Systems: All systems reviewed & are unremarkable except as noted in Subjective Physical Exam Physical Exam: Physical Exam: Vitals signs as noted above General Appearance:Moderately built and nourished, no apparent distress Head: normocephalic, Atraumatic Eyes: normal inspection, EOMI Neck: supple, Trachea midline Respiratory/Chest: Normal breath sounds, CTA Cardiovascular: S1, S2, No murmur Abdomen/GI:Soft, Non tender, Bowel sounds present Extremities/Musculoskeletal:normal inspection, no edema Neurologic/Psych:AAOX3, grossly no focal neurological deficits Skin: normal color, warm Results & Data Results & Data ([facility]) Vital Signs (Past 12 Hours) Vital Signs Temp Pulse Pulse Resp BP Pulse Ox 02/24/21 08:16 36.8 C 71 18 149/76 H 02/24/21 08:11 70 150/79 H 02/24/21 08:00 82 02/24/21 03:22 36.8 C 57 L 18 170/73 H 95 Laboratory Results Short CBC 02/24/21 Range/Units 06:40 WBC 5.33 (4.8-10.8) K/uL Hgb 13.3 (12.0-16.0) g/dL Hct 41.1 (37-47) % Plt Count 253 (130-400) K/uL BMP 02/24/21 06:40 Sodium 138 Potassium 3.6 Chloride 103 Carbon Dioxide 30 BUN 15 Creatinine 0.81 Glucose 112 H Calcium 9.1 (1) CVA (cerebral vascular accident) CVA mechanism: unspecified Qualified Code(s): I63.9 - Cerebral infarction, unspecified
[2021-02-24] MEDS ORDERED: STROKE PATIENT DISCHARGE STA (12:17)
--- NOTE | 2021-02-24 12:19 | Discharge Summary ---
Date of Service February 24, 2021 Admission HPI Per Admitting Provider This is a 76 yo F with PMHx of HLD, hx breast cancer, MDD, who presents from PCP office today with complaint of new onset of intermittent blurred vision, Right sided frontal headache, and generalized weakness and unsteady gait which started approximately 1 week ago. Patient presented an outpatient weekend clinic where she was told that she possibly had an ear infection, however denied any history of ear pain, and was started on amoxicillin twice daily. After 2 to 3 days of antibiotic and worsening symptoms on Friday ( which included worse headache, increase blurred vision in the R eye, and increased gait unsteadiness) she scheduled see her PCP, which occurred this morning. Her daughter reports that she is not herself, has not been up and doing things like she typically does; i.e. walks 1.5 mi at least twice per week, however was not able to do so, did not go to yarsani, did not go out to lunch with her friends due to feeling ill recently. She presented to the hospital from PCP office due to needs for stat imaging with her complaints which were suggestive of neurological issue CT of the head here is showing a hypodense focal lesion. We are ordering an MRI of the brain for further imaging review. She takes daily baby aspirin as well as atorvastatin 20 mg. Patient denies any history of stroke or cva. She lives at home with her daughter and granddaughter. Her daughter is present at bedside and supports the history. Denies any smoking or drinking history. Her blood pressure is elevated at 212/88 here in the ER, her heart rate was as low as the mid 40s, however is back up into the mid 60s while at bedside. Administer labetalol IV for improvement in hypertensive urgency and follow. Admission Exam Per Admitting Provider Physical Exam Physical Exam: General: awake, alert, no apparent distress Head: Normocephalic, atraumatic ENT: PERRL, EOMI, no pharyngeal exudate, mucous membranes moist Chest: Clear to auscultation, on room air, no adventitious breath sounds Cardiac: Regular rate and rhythm, no murmur, no JVD, normal peripheral pulses, good capillary refill Abdominal: NABS x 4 quadrants, soft, nondistended, nontender to palpation, no rebound or guarding Extremities: Normal inspection, no peripheral edema or erythema, calfs nontender to palpation Psych: Normal mood and affect Neuro: AAO x 3, strength intact bilaterally and rated 5/5, no motor deficits, speech is clear, no peripheral sensory deficits, able to perform iacijv-lq-gars testing without difficulty. Gait wAs not assessed. Principal Diagnosis Stroke like symptoms Hypertensive urgency chronic vascular leukoencephalopathy Possible Complicated migraine Discharge Data Allergies Allergy/AdvReac Type Severity Reaction Status Date / Time No Known Allergies Allergy Unknown Unverified 02/22/21 14:20 Consultations 02/22/21 16:55 ED Decision to Admit Stat 02/22/21 19:16 Consult Neurology Routine Ordered Studies 02/22/21 13:58 CT angio head w con Stat CT angio neck with con Stat CT head/brain wo con Stat 02/22/21 19:05 MR brain wo/w con Routine Hospital Course (1) CVA (cerebral vascular accident): Stroke like symptoms CVA ruled out D:chronic vascular leukoencephalopathy, complicated migraine, secondary to hypertensive urgency -MRI Brain:No acute infarct. Multiple scattered foci of T2 hyperintensity seen within the periventricular and subcortical white matter of the superficial brain. This is most pronounced within the left periventricular white matter and corresponds to the abnormality on the prior CT examination. Although nonspecific, this favors microvascular ischemic change given the patient's age. Multiple sclerosis, Lyme disease, or migraines can also have a similar appearance but are considered less likely. --Head/Neck CTA:Asymmetric hypodensity in the left anterior globus pallidus and putamen as well as the posterior supraventricular white matter which may possibly reflect acute infarct. If further evaluation is desired, MRI is a more sensitive modality for acute infarct. No occlusion, hemodynamically significant stenosis, aneurysm, dissection, or arteriovenous malformation in the major intracranial arteries. Highly diminutive appearance of the left vertebral artery with no visualized flow proximally. The posterior circulation is supplied primarily by the right femoral artery. --Continue aspirin, Lipitor Blood pressure better today Appreciate neurology input Plan to start riboflavin, magnesium supplements Needs outpatient follow-up with neurology, ophthalmology (2) Hypertensive urgency: Continue losartan, amlodipine Labetalol as needed Echo reviewed Monitor Consider sleep study as outpatient (3) HLD (hyperlipidemia): Continue Lipitor (4) MDD (major depressive disorder): -Continue Prozac daily DVT Px: teds, scds CODE STATUS: Full code Total Time Total Time Spent Total Time Spent (In Minutes): 45 minutes Discharge Plan Discharge Items Patient Disposition: Home - Self-Care Reason For Visit: CVA Discharge Diagnosis: Stroke like symptoms Hypertensive urgency chronic vascular leukoencephalopathy Possible Complicated migraine Activity: Per Instructions section Exercise/Sports: Gradually increase as tolerated Driving/Machine Use: No driving permitted until cleared by your neurologist/blending tank tender helper Non-emergency contact: Primary Care Provider and Neurologist Call non-emergency contact if: you have any medication questions, your symptoms worsen, your pain is concerning for you and you have a fever Follow-up/Referrals: Stephanie Kulkarni DO [Primary Care Provider] - (Date & Time 02/27/2021 11:20 AM Provider Nate Geiger DO Department [facility] ) Mary Forbes PA-C [Physician [employer] Operator] - (Date & Time 03/21/2021 11:20 AM Provider Mary Forbes PA-C Department Neurology [facility] ) Diet: Heart Healthy Addtl Attending Provider Instructions: Follow-up with your primary care physician on 02/27/2021 11:20 AM Follow-up with your neurologist Mary Forbes PA-C on 03/21/2021 11:20 AM Follow-up with your blending tank tender helper in 2 weeks as advised --- No driving permitted until cleared by your neurologist/blending tank tender helper ---Check your blood pressure regularly as advised and discuss with your primary care physician for further adjustment of your high blood pressure medications. --- Consider getting sleep study as outpatient to rule out obstructive sleep apnea. Seek immediate medical attention if your symptoms reoccur or worsen Please take all medications as instructed on discharge list below. Please call if you have any questions or problems. You can reach a [facility] hospitalist on duty at [facility] 24 hours a day by calling [phone] Pending Studies at Discharge: No Stand-Alone Forms: My [facility] [employer], Smoking Cessation Medications and DC Order Prescriptions: New amlodipine [Norvasc] 5 mg Tablet 5 mg PO QAM Qty: 30 RF: 0 losartan 50 mg Tablet 50 mg PO QAM Qty: 30 RF: 0 magnesium oxide 400 mg (241.3 mg magnesium) Tablet 400 mg PO QAM Qty: 30 RF: 0 riboflavin (vitamin B2) 400 mg tablet 400 mg PO DAILY Qty: 30 RF: 0 Continued atorvastatin 20 mg tablet 20 mg PO HS RF: 0 famotidine 20 mg tablet 20 mg PO DAILY RF: 0 fluoxetine 20 mg capsule 20 mg PO DAILY RF: 0 multivitamin Tablet 1 tab PO DAILY RF: 0 calcium 600 mg Capsule 600 mg PO DAILY RF: 0 aspirin [Aspirin Low Dose] 81 mg Tablet,Delayed Release (Dr/Ec) 81 mg PO DAILY RF: 0 Ocuvite [id number] vb-vrvy-ld-mg Capsule 1 cap PO DAILY RF: 0 omega 0-hvh-gbd-fish oil [Fish Oil] 60-90-500 mg Capsule 1 cap PO DAILY RF: 0 Discontinued amoxicillin 875 mg tablet 875 mg PO DAILY RF: 0 Discharge Orders: Discharge Order (Routine); Ordered 02/24/21 Ordered By: Mike Christian Admission Data Admit Date/Time: 02/22/21 17:02 Attending Provider: Mike Christian Admit Provider: Antonio Sanchez Primary Care Provider: Stephanie Kulkarni Other Providers: Antonio Sanchez ; Flynn Olsen
== END 2021-02-24 15:08 | disposition home or self-care (01) | DRG 103 ==
LOC: ED 13:30 → 2S 17:02 → SUATTDRO 17:02 → 2S 18:23
DX: Z79.82 Long term (current) use of aspirin; G93.49 Other encephalopathy; Z85.3 Personal history of malignant neoplasm of breast; I16.0 Hypertensive urgency; K21.9 Gastro-esophageal reflux disease without esophagitis; F32.9 Major depressive disorder, single episode, unspecified; G43.109 Migraine with aura, not intractable, without status migrainosus; R27.0 Ataxia, unspecified; H53.8 Other visual disturbances; E78.5 Hyperlipidemia, unspecified; I67.3 Progressive vascular leukoencephalopathy